=== PATIENT | female | born 1995 | race Caucasian/White ===

== ENCOUNTER 2019-08-13 15:12 | Observation (INO) | payer OTHER ==
[2019-06-11 23:00] VITALS: BP 105/56
[~2019-08-13 15:12] MED LIST: CEPH-264 PO; CYCL10TA2 PO; DOCU-109 PO; Ibuprofen PO; OXYC1TAB15 PO; PNV1TABL25 PO
[2019-08-13] MEDS ORDERED: IV RINGERS,LACTATED 1000ML 1,000 ML IV SCH (16:18)
[2019-08-13 16:51] LABS: BILIRUBIN,URINE NEGATIVE (NEG); CLARITY,URINE CLOUDY; COLOR,URINE YELLOW; NITRITE,URINE NEGATIVE (NEG); PROTEIN,URINE NEGATIVE (NEG-TRACE)
[2019-08-13 17:03] LABS: BACTERIA,URINE MANY /HPF (0-FEW); RBC,URINE RARE /HPF (0-2); SQUAMOUS EPITHELIAL CELL,UR MANY /LPF; WBC,URINE TNTC /HPF (0-4)
== END 2019-08-13 18:10 | disposition home or self-care (01) ==
LOC: 3 SO LND 15:12
PROVIDERS: ADMIT Obstetrics & Gynecology; ATTEND Obstetrics & Gynecology
DX: O36.8130 Decreased fetal movements, third trimester, not applicable or unspecified (principal); Z3A.32 32 weeks gestation of pregnancy
CPT/HCPCS: 81001; 87086; G0378; G0379

== ENCOUNTER 2019-09-11 11:00 | Observation (INO) | payer OTHER ==
[2019-06-11 23:00] VITALS: BP 105/56
[2019-09-11] MEDS ORDERED: IV RINGERS,LACTATED 1000ML 1,000 ML IV SCH (11:07)
== END 2019-09-11 11:50 | disposition home or self-care (01) ==
LOC: 3 SO LND 11:00
PROVIDERS: ADMIT Obstetrics & Gynecology; ATTEND Obstetrics & Gynecology
DX: O36.8130 Decreased fetal movements, third trimester, not applicable or unspecified (principal); O99.343 Other mental disorders complicating pregnancy, third trimester; F32.9 Major depressive disorder, single episode, unspecified; Z3A.36 36 weeks gestation of pregnancy
CPT/HCPCS: G0378; G0379; 59025